=== PATIENT | female | born 2000 | race Two or more races ===

== ENCOUNTER 2019-11-10 08:03 | Inpatient (IN) | payer MEDICAID, OTHER ==
[~2019-11-10] VITALS: Ht 154.9 cm; Wt 78.9 kg
--- NOTE | 2019-11-10 08:09 | NUR ---
CAME IN WITH C/O ABDOMINAL PAIN "PAIN STARTED AT 0300 AM, WORSE NOW, ALSO WITH NAUSEA AND VOMITING". TO ER BED 11, HOOKED TO MONITOR, CHANGED TO HOSP GOWN, PROVIDED W WARM BLANKET, AWAITING MD TANG.
--- NOTE | 2019-11-10 08:54 | NUR ---
DR DE AT BEDSIDE
[2019-11-10 09:14] LABS: BASOPHILS # (AUTO) 0.1 /CMM (0.0-0.2); BASOPHILS % (AUTO) 0.5 % (0.0-2.0); EOSINOPHILS % (AUTO) 0.1 % (0.0-6.0); HEMATOCRIT 42 % (33-45); HEMOGLOBIN 14.2 g/dL (11.5-14.8); LYMPHOCYTES # (AUTO) 1.1 /CMM (0.8-4.8); LYMPHOCYTES % (AUTO) 7.4 % (20.0-44.0); MEAN CORPUSCULAR HGB CONC 34 g/dl (31.0-36.0); MEAN CORPUSCULAR VOLUME 90 fL (82-100); MONOCYTES # (AUTO) 0.5 /CMM (0.1-1.30); MONOCYTES % (AUTO) 3.1 % (2.0-12.0); NEUTROPHILS # (AUTO) 13.1 /CMM (1.8-8.9); NEUTROPHILS % (AUTO) 88.9 % (43.0-81.0); PLATELET COUNT (AUTO) 400 /CMM (150-450); RED BLOOD CELL COUNT(AUTO) 4.63 MIL/uL (4.0-5.2); WHITE BLOOD COUNT (AUTO) 14.8 K/uL (4.3-11.0)
[2019-11-10 09:23] LABS: CREATININE 0.7 mg/dL (0.6-1.3); POTASSIUM 3.8 mmol/L (3.5-5.1)
[2019-11-10 09:28] LABS: ALBUMIN 3.9 g/dL (3.4-5.0); BILIRUBIN,DIRECT 0.1 mg/dL (0.0-0.2); BILIRUBIN,TOTAL 0.4 mg/dL (0.2-1.0); TOTAL PROTEIN, SERUM 8.1 g/dL (6.4-8.2)
[2019-11-10] MEDS ORDERED: KETOROLAC TROMETHAMINE 15 MG/ML VIAL ONE ×2 (09:29→10:58)
[2019-11-10] MEDS ORDERED: ONDANSETRON HCL/PF 4 MG/2 ML VIAL ONE (09:29)
[2019-11-10] MEDS ORDERED: IV NS 0.9% 1,000 ML BAG IV ONE (09:30)
[2019-11-10] MEDS ORDERED: KETOROLAC TROMETHAMINE INJ 30 MG/ML VIAL IV ONE ×2 (09:30→11:30)
[2019-11-10] MEDS ORDERED: ONDANSETRON HCL/PF 4 MG/2 ML VIAL IVP ONE (09:30)
[2019-11-10 09:35] LABS: APPEARANCE,URINE Clear (CLEAR); BILIRUBIN,URINE Negative (NEGATIVE); BLOOD, URINE Trace-intact Ery/uL (NEGATIVE); COLOR,URINE Yellow (YELLOW); KETONES,URINE Negative (NEGATIVE); LEUKOCYTE ESTERASE ,URINE Trace (NEGATIVE); NITRITE, URINE Negative (NEGATIVE); PH,URINE 5.5 (5.0-8.0); PROTEIN,URINE Negative (NEGATIVE); UGLUCOSE Negative (NEGATIVE); UROBILINOGEN,URINE 0.2 EU/dL (0.2)
[2019-11-10 09:36] LABS: BACTERIA,URINE Rare /HPF (None Seen); RBC,URINE 0-2 /HPF (0-2); SQUAMOUS EPITHELIAL CELL,UR Few /HPF (None Seen); WBC,URINE 0-2 /HPF (0-3)
--- NOTE | 2019-11-10 10:22 | NUR ---
PAGED SURGERY SENIOR MAINTENANCE MECHANIC.
[2019-11-10] MEDS ORDERED: PIPERACILLIN /TAZOBACTAM 3.375 G in IV D5W 50 ML IV ONE (10:30)
[2019-11-10] MEDS ORDERED: MORPHINE SULFATE INJ 2 MG/ML DISP.SYRIN IV ONE (10:30)
--- NOTE | 2019-11-10 10:31 | NUR ---
CALLED NURSING SUP FOR M/S BED.
[2019-11-10] MEDS ORDERED: PIPERACILLIN /TAZOBACTAM 3.375 G VIAL IV ONE (10:58)
--- NOTE | 2019-11-10 11:00 | NUR ---
RADIOLOGIST INFORMED TO HOLD OFF WITH MORPHINE UNTIL HIDA IS DONE.
--- NOTE | 2019-11-10 11:50 | NUR ---
WHEELED OUT VIA STACIE MONSIVAIS
--- NOTE | 2019-11-10 12:25 | NUR ---
PAGED [facility].
--- NOTE | 2019-11-10 13:18 | NUR ---
CALLED [facility].
[2019-11-10] MEDS ORDERED: IV NS 0.9% 1,000 ML IV PRN (13:33)
[2019-11-10] MEDS ORDERED: Z GUARD REMEDY 2 OZ OINT TP PRN (14:00)
[2019-11-10] MEDS ORDERED: ACETAMINOPHEN 325 MG TABLET PO PRN (14:00)
[2019-11-10] MEDS ORDERED: MORPHINE SULFATE INJ 2 MG/ML DISP.SYRIN IV PRN (14:00)
[2019-11-10] MEDS ORDERED: ZOLPIDEM TARTRATE 5 MG TABLET PO PRN (14:00)
[2019-11-10] MEDS ORDERED: MAGNESIUM HYDROXIDE 30 ML UDC PO PRN (14:00)
[2019-11-10] MEDS ORDERED: MAG HYDROX/AL HYDROX/SIMETH 30 ML UDC PO PRN (14:00)
--- NOTE | 2019-11-10 14:33 | NUR ---
REPORT GIVEN TO EVONNE CLEMONS OF [facility] UNIT
--- NOTE | 2019-11-10 15:00 | NUR ---
ms rn received a new admission, 19 year old female, awake,alert,oriented x4,came in w/ cc of right upper quadrant abd pain at this time, under maldonado saleh service, will monitor patient.
--- NOTE | 2019-11-10 16:00 | NUR ---
ms rn went down for mrcp, will monitor patient.
[2019-11-10] MEDS: PIPERACILLIN /TAZOBACTAM 3.375 G in IV D5W 100 ML IV SCH (16:51)
[2019-11-10] MEDS: ONDANSETRON HCL/PF 4 MG/2 ML VIAL IVP PRN (16:52)
[2019-11-10] MEDS ORDERED: PIPERACILLIN /TAZOBACTAM 4.5 G in IV D5W 50 ML IV SCH (18:00)
--- NOTE | 2019-11-10 19:30 | NUR ---
MS RN OPENING NOTES PATIENT AWAKE AND RESTING IN BED UPON ARRIVAL. FAMILY PRESENT AT THE BEDSIDE. A/O X 4. ON ROOM AIR. NO COMPLAINTS OF SOB OR PAIN AT THIS TIME. IV PRESENT ON LEFT AC, SIZE 18, INTACT & PATENT WITH IVPB ZOSYN RUNNING AT 25 CC/HR. PATIENT ABLE TO VERBALIZE NEEDS. BED LOCKED, SEMI-VALENCIA'S POSITION, SIDE RAILS X2, CALL LIGHT WITHIN REACH. WILL CONTINUE TO MONITOR.
[2019-11-10 20:00] VITALS: BP 114/75
[2019-11-11] MEDS: PIPERACILLIN /TAZOBACTAM 3.375 G in IV D5W 100 ML IV SCH ×3 (01:21→16:28)
--- NOTE | 2019-11-11 06:25 | NUR ---
MS RN CLOSING NOTES PATIENT SLEEPING IN BED, EASY TO AWAKEN. FAMILY PRESENT AT THE BEDSIDE. A/O X4. ON ROOM AIR. NO COMPLAINTS OF SOB OR PAIN AT THIS TIME. IV PRESENT ON THE LEFT AC, SIZE 18, INTACT & PATENT WITH NS RUNNING AT 75 CC/HR. PATIENT NPO SINCE MIDNIGHT. CONSENT FOR LAPAROSCOPIC CHOLECYSTECTOMY SIGNED AND PLACED IN CHART. BED LOCKED, SUPINE POSITION, SIDE RAILS X2, CALL LIGHT WITHIN REACH. WILL ENDORSE TO DAY SHIFT NURSE TO FOLLOW PLAN OF CARE.
[2019-11-11 07:26] LABS: BASOPHILS % (AUTO) 0.3 % (0.0-2.0); EOSINOPHILS % (AUTO) 1.1 % (0.0-6.0); HEMATOCRIT 38 % (33-45); LYMPHOCYTES # (AUTO) 2.2 /CMM (0.8-4.8); LYMPHOCYTES % (AUTO) 21.4 % (20.0-44.0); MEAN CORPUSCULAR HGB CONC 35 g/dl (31.0-36.0); MEAN CORPUSCULAR VOLUME 91 fL (82-100); MONOCYTES % (AUTO) 9.4 % (2.0-12.0); NEUTROPHILS # (AUTO) 6.9 /CMM (1.8-8.9); NEUTROPHILS % (AUTO) 67.8 % (43.0-81.0); PLATELET COUNT (AUTO) 353 /CMM (150-450); RED BLOOD CELL COUNT(AUTO) 4.16 MIL/uL (4.0-5.2); WHITE BLOOD COUNT (AUTO) 10.2 K/uL (4.3-11.0)
--- NOTE | 2019-11-11 07:35 | NUR ---
MS RN OPENING NOTES RECEIVED PATIENT IN BED RESTING COMFORTABLY IN MODERATE HIGH BACK REST. ALERT AND ORIENTED X 4. ABLE TO MAKE NEEDS KNOWN. NO SIGNS OF DISTRESS NOTED AT THIS TIME. IV FLUIDS ON LEFT AC #18 WITH NS @75 ML/HR. PATENT AND INTACT, INFUSING WELL WITH NO BLEEDING OR S/S OF INFECTION/INFILTRATION NOTED. SAFETY MEASURES IN PLACE, BED IN LOW AND LOCKED POSITION WITH SIDE RAILS UP X2. CALL LIGHT WITH IN EASY REACH. WILL CONTINUE TO MONITOR ACCORDINGLY.
[2019-11-11 07:45] LABS: ALBUMIN 3.1 g/dL (3.4-5.0); BILIRUBIN,TOTAL 0.9 mg/dL (0.2-1.0); CALCIUM, SERUM 8.5 mg/dL (8.5-10.1); CREATININE 0.7 mg/dL (0.6-1.3); MAGNESIUM 1.9 mg/dL (1.8-2.4); PHOSPHORUS 3.7 mg/dL (2.5-4.9); POTASSIUM 3.7 mmol/L (3.5-5.1); TOTAL PROTEIN, SERUM 6.6 g/dL (6.4-8.2)
[2019-11-11 08:00] VITALS: BP 106/62
--- NOTE | 2019-11-11 11:00 | NUR ---
RN NOTES PATIENT WAS PICKED UP BY 2 O.R NURSE VIA HOSPITAL BED FOR SURGERY, V/S WNL. NO SIGNS OF DISTRESS NOTED AT THIS TIME. ALL CONSENTS SIGNED.
[2019-11-11] MEDS ORDERED: LIDOCAINE 1% INJ 50 ML MDV IJ ONE (11:14)
[2019-11-11] MEDS ORDERED: ANESTHESIA TRAY IN PYXIS 1 EA TRAY MC ONE (11:14)
[2019-11-11] MEDS ORDERED: BUPIVACAINE MPF 0.5% W/EPI INJ 30 ML VIAL ONE (11:14)
[2019-11-11] MEDS ORDERED: HYDROMORPHONE INJ 2 MG/ML DISP.SYRIN ONE (11:55)
[2019-11-11] MEDS ORDERED: MIDAZOLAM HCL 2 MG/2ML VIAL ONE (11:55)
[2019-11-11] MEDS ORDERED: ROCURONIUM BROMIDE 50 MG/5 ML ONE (11:55)
[2019-11-11] MEDS ORDERED: SCOPOLAMINE HBR 1 EA PATCH.TD72 TD ONE (12:13)
[2019-11-11] MEDS ORDERED: IOHEXOL 240MG/ML 50 ML IV ONE (12:56)
[2019-11-11] MEDS ORDERED: ACETAMINOPHEN 325 MG TABLET PO PRN (14:00)
[2019-11-11] MEDS ORDERED: IBUPROFEN 600 MG TABLET PO PRN (14:00)
[2019-11-11] MEDS ORDERED: FENTANYL PF 100MCG/2ML AMPUL ONE (14:18)
--- NOTE | 2019-11-11 15:09 | NUR ---
RN NOTES PATIENT ARRIVED AT UNIT WITH 2 O.R STAFF VIA HOSPITAL BED FROM SURGERY. REPORT FROM KACI FONTANEZ RECEIVED. A/O X4. ON RA, NO SIGNS OF DISTRESS NOTED AT THIS TIME. IVF ON LEFT AC#18 INFUSING WELL, PATENT AND INTACT. PROVIDED WITH INCENTIVE SPIROMETRY. NOTED WITH HITESH DRAIN ON RIGHT ABDOMEN. NO COMPLAIN OF PAIN OR DISCOMFORT AT THIS TIME. ALL ORDERS IN AND CARRIED OUT. WILL CONTINUE TO MONITOR.
[2019-11-11] MEDS: HYDROCODONE/APAP 5/325MG 1 EACH TABLET PO PRN ×2 (15:32→23:34)
[2019-11-11 16:00] VITALS: BP 120/79
[2019-11-11] MEDS: MORPHINE SULFATE INJ 2 MG/ML DISP.SYRIN IV PRN (17:11)
--- NOTE | 2019-11-11 18:30 | NUR ---
MS RN CLOSING NOTES PATIENT IN BED RESTING COMFORTABLY IN MODERATE HIGH BACK REST. ALERT AND ORIENTED X 4. ABLE TO MAKE NEEDS KNOWN. NO SIGNS OF DISTRESS NOTED THROUGHOUT THE SHIFT. S/P Laparoscopic cholecystectomy. IV FLUIDS ON LEFT AC #18 WITH NS @75 ML/HR. PATENT AND INTACT, INFUSING WELL WITH NO BLEEDING OR S/S OF INFECTION/INFILTRATION NOTED. NOTED WITH HITESH DRAIN WITH OUTPUT OF 5CC. SAFETY MEASURES IN PLACE, BED IN LOW AND LOCKED POSITION WITH SIDE RAILS UP X2. CALL LIGHT WITH IN EASY REACH. WILL ENDORSE TO RAIL BENDER NURSE FOR JOHANNA.
--- NOTE | 2019-11-11 19:45 | NUR ---
RN NOTES RECEIVED PATIENT AWAKE IN BED RESTING COMFORTABLY IN MODERATE HIGH BACK REST. ALERT AND ORIENTED X4. ABLE TO MAKE NEEDS KNOWN. NO SIGNS OF DISTRESS NOTED THROUGHOUT THE SHIFT. S/P LAPAROSCOPIC CHOLECYSTECTOMY. IV ACCESS INTACT AND PATENT, IV FLUIDS ON LEFT AC #18 WITH NS @75 ML/HR. INFUSING WELL WITH NO BLEEDING OR S/S OF INFECTION/INFILTRATION NOTED. NOTED WITH HITESH DRAIN WITH OUTPUT OF 5CC. SAFETY MEASURES IN PLACE, BED IN LOW AND LOCKED POSITION WITH SIDE RAILS UP X2. CALL LIGHT WITH IN EASY REACH. WILL CONTINUE TO MONITOR ACCORDINGLY.
[2019-11-11 20:00] VITALS: BP 96/52
[2019-11-12] MEDS: PIPERACILLIN /TAZOBACTAM 3.375 G in IV D5W 100 ML IV SCH ×3 (01:31→17:08)
[2019-11-12] MEDS: HYDROCODONE/APAP 5/325MG 1 EACH TABLET PO PRN ×4 (04:33→21:13)
--- NOTE | 2019-11-12 07:23 | NUR ---
RN NOTES ALL NEEDS ATTENDED AND MET ABLE TO REST AND SLEPT AT INTERVALS, NO SIGNS OF DISTRESS, KEEP COMFORTABLE, MANAGES PAIN WELL, SAFETY MEASURES IN PLACED, CALL LIGHT WITHIN EASY REACH, HITESH DRAIN OUTPUT NOTED 5CC PINK[place] RED SECRETIONS, ENDORSED TO AM NURSE FOR CONTINUITY OF CARE.
--- NOTE | 2019-11-12 07:30 | NUR ---
MS/RN Patient received Patient received from warehouse shift supervisor. A/O X4, vital signs stable, IV fluids infusing as ordered, no signs of infiltration seen. Questions and concerns addressed. Will continue to monitor and ensure safety.
--- NOTE | 2019-11-12 07:45 | NUR ---
MS/RN HITESH drain HITESH drain noted to right side of abdomen with 50ml output.
[2019-11-12 08:00] VITALS: BP 100/56
[2019-11-12] MEDS: MORPHINE SULFATE INJ 2 MG/ML DISP.SYRIN IV PRN (08:03)
[2019-11-12] MEDS: ONDANSETRON HCL/PF 4 MG/2 ML VIAL IVP PRN (08:03)
--- NOTE | 2019-11-12 08:10 | NUR ---
MS/RN Pain Complaining of 9/10 pain to abdomen from surgery yesterday, morphine 2mg administered. Will monitor effectiveness.
[2019-11-12] MEDS ORDERED: ACET-907 PO (08:41)
--- NOTE | 2019-11-12 09:00 | NUR ---
MS/RN S/B Dr Peng Seen by Dr Peng - IV fluids and morphine IVP discontinued, patient to be encouraged to ambulate to help relieve pressure and discomfort felt from gas in abdomen. Maybe discharged home today once cleared by surgeons.
--- NOTE | 2019-11-12 10:30 | NUR ---
MS/RN Ambulation Patient encouraged and reminded of the importance of early ambulation to help prevent DVT. Stated understanding.
--- NOTE | 2019-11-12 13:15 | NUR ---
MS/RN [place] one tablet administered for pain scale 7/10. Will monitor effectiveness.
[2019-11-12 16:00] VITALS: BP 99/55
--- NOTE | 2019-11-12 18:00 | NUR ---
MS/RN Drain output HITESH drain output - 75ml.
--- NOTE | 2019-11-12 18:17 | NUR ---
MS/RN End note Patient remains in stable condition, awaiting review from Dr Jalloh. Per Dr Peng, once cleared may be discharged to home. Prescriptions written. Last pain medication administered at 1700. Will endorse to retail sales advisor.
--- NOTE | 2019-11-12 19:00 | NUR ---
MS/RN OPENING NOTES: RECEIVED PT IN STABLE CONDITION. A/O X4, VERBALLY RESPONSIVE AND ABLE TO MAKE NEEDS KNOWN. BOYFRIEND PRESENT AT BEDSIDE. NO SOB NOTED, NO S/S OF ACUTE DISTRESS. NO COMPLAINS OF PAIN AT THIS TIME. IV SITE ON THE LEFT AC #18G INTACT AND PATENT. SAFETY MEASURES IN PLACE, BED IN LOW, LOCKED POSITION WITH SR UP X2. WILL CONTINUE MONITORING PT. ACCORDINGLY.
[2019-11-12 20:00] VITALS: BP 122/57
--- NOTE | 2019-11-12 21:13 | NUR ---
MS/RN NOTES: PATIENT COMPLAINED OF PAIN LEVEL OF 8 ON HER ABDOMINAL AREA. ADMINISTERED 5MG OF NORCO ORDERED. VS STABLE, PATIENT STABLE. TOLERATED WELL. WILL CONTINUE MONITORING PT ACCORDINGLY.
[2019-11-13] MEDS: PIPERACILLIN /TAZOBACTAM 3.375 G in IV D5W 100 ML IV SCH ×2 (00:09→09:36)
--- NOTE | 2019-11-13 01:00 | NUR ---
MS/RN NOTES: COLLECTED HITESH DRAIN OUTPUT F 50ML, SEROSANGUINEOUS.
[2019-11-13] MEDS: HYDROCODONE/APAP 5/325MG 1 EACH TABLET PO PRN ×3 (01:19→11:13)
--- NOTE | 2019-11-13 01:19 | NUR ---
MS/RN NOTES: PATIENT COMPLAINED OF PAIN LEVEL OF 7 ON HER ABDOMINAL AREA. ADMINISTERED 5MG OF NORCO ORDERED. VS STABLE, PATIENT STABLE. TOLERATED WELL. WILL CONTINUE MONITORING PT ACCORDINGLY.
--- NOTE | 2019-11-13 06:43 | NUR ---
MS/RN CLOSING NOTES: PATIENT REMAINS IN STABLE CONDITION. BOYFRIEND PRESENT AT BEDSIDE. NO SOB NOTED, NO S/S OF ACUTE DISTRESS. NO SIGNIFICANT CHANGES IN CONDITION. NO COMPLAINS OF PAIN AT THIS TIME. IV SITE ON THE LEFT AC #18G INTACT AND PATENT. HITESH DRAIN CURRENTLY DRAINING SEROSANGUINEOUS OUTPUT. TOTAL WAS 50ML DURING MY SHIFT. ALL DUE MEDICATIONS GIVEN ORDERED, ALL NEEDS MET AND PROVIDED AT THIS TIME. KEPT WARM AND COMFORTABLE THROUGHOUT THE SHIFT. SAFETY MEASURES KEPT IN PLACE, BED IN LOW AND LOCKED POSITION WITH SIDE RAILS UP X2. CALL LIGHT WITH IN EASY REACH. WILL ENDORSE TO DAY SHIFT NURSE FOR JOHANNA.
--- NOTE | 2019-11-13 07:00 | NUR ---
MS/RN NOTES: PATIENT COMPLAINED OF PAIN LEVEL OF 7 ON HER ABDOMINAL AREA. ADMINISTERED 5MG OF NORCO ORDERED. VS STABLE BP 116/67 HR 84, PATIENT STABLE. TOLERATED WELL. WILL CONTINUE MONITORING PT ACCORDINGLY.
--- NOTE | 2019-11-13 07:30 | NUR ---
MS/RN Patient received Patient received from pilot instructor. A/O X4, vital signs stable. Abdomen soft to touch, bowel sounds present, no bowel movement since surgery. Lap sites clean and dry, open to air. HITESH drain noted to right side of abdomen with minimal drainage at this time. Call light within reach, will continue to monitor and ensure safety.
[2019-11-13 08:00] VITALS: BP 122/67
--- NOTE | 2019-11-13 09:11 | NUR ---
MS/RN Medications Medications administered as ordered.
--- NOTE | 2019-11-13 11:15 | NUR ---
MS/RN Dr Jalloh Telephone order from Dr Jalloh to discharge patient to home today, needs to follow up in office in one week for removal of drain.
--- NOTE | 2019-11-13 11:22 | NUR ---
MS/RN S/B Dr Peng Seen by Dr Peng - patient to be discharged to home today. Prescription given for pain medication and antibiotics.
--- NOTE | 2019-11-13 13:30 | NUR ---
MS/cable tv installer Exit care signed by patient, copies provided to patient of exit care and medical record. Educated patient as to what medications on prescription were for, made aware of possible side effects and the importance of filling prescription as soon as possible. Instructed to follow up with Dr Jalloh in one week, provided with office number and address. Also informed to register with primary care physician as patient new to [place] and not yet registered. Stated that she would call her insurance in the morning to obtain list of contracted MD's. All questions and concerns addressed. Both patient and shown how to empty and take care of HITESH drain, return demonstration given by . Provided with supplies including gloves, alcohol wipes and drainage container. Patient discharged to home in stable condition. All personal belongings accounted for on belongings list. Transport provided by , wheeled to main lobby by MINUTE CLERK.
== END 2019-11-13 14:00 | disposition home or self-care (01) | DRG 260 ==
LOC: ER 08:06 → MED 11:24
PROVIDERS: ADMIT Internal Medicine; ATTEND Internal Medicine
DX: K80.00 Calculus of gallbladder with acute cholecystitis without obstruction (principal); K76.0 Fatty (change of) liver, not elsewhere classified; E87.1 Hypo-osmolality and hyponatremia; Z68.33 Body mass index [BMI] 33.0-33.9, adult; E66.9 Obesity, unspecified
CPT/HCPCS: 36415; 74018; 76705-TC; 78226; 80048-TC; 80053-TC; 80076-TC; 81000-TC; 83690-TC; 83735-TC; 84100-TC; 84703-TC; 85025-TC; 85610-TC; 86850-TC; 87081-TC; 88304-TC; 88307-TC; 88313-TC; A9537; G0378; J1100; J1170; J1885; J2250; J2270; J2405; J2543; J2704; J2710; J3010; J3490; J7030; J7060; Q9966